=== PATIENT | male | born 1980 | race Hispanic/Latino ===

== ENCOUNTER 2018-04-20 23:45 | Observation (INO) | payer BC ==
[2018-04-21] MEDS ORDERED: Nitroglycerin 2% Ointment 1 INCH/1 GM Packet ONE (00:05)
[2018-04-21 00:40] LABS: #Basophils 0.1 thou/uL (0.0-0.2); #Eosinphils 0.1 thou/uL (0.0-0.7); #Lymphocytes 2.1 thou/uL (1.20-3.40); #Monocytes 0.5 thou/uL (0.11-0.59); #Neutrophils 6.4 thou/uL (1.40-6.50); %Basophils 1.5 % (0.0-1.0); %Eosinophils 1.4 % (0.0-10.0); %Lymphocytes 22.4 % (21.0-51.0); %Monocytes 5.7 % (0.0-10.0); %Neutrophils 68.9 % (42.0-75.0); Hemoglobin 16.8 g/dL (14.0-18.0); Mean Corpuscular Hemoglobin 29.8 pg (27.0-31.0); Mean Corpuscular Volume 82.7 fL (78.0-98.0); Mean Platelet Volume 8.7 fL (7.4-10.4); Platelet Count 312 thou/uL (130-400); RBC Distribution Width 10.5 % (11.5-14.5); Red Blood Cell (RBC) Count 5.63 mill/uL (4.70-6.10); White Blood Cell (WBC) Count 9.2 thou/uL (4.8-10.8)
[2018-04-21 00:41] LABS: CKMB 1.2 ng/mL (0-6.6)
[2018-04-21 00:45] LABS: ALT (SGPT) 31 U/L (8-55); AST (SGOT) 21 U/L (5-34); Alkaline Phosphatase 94 U/L (40-150); Anion Gap 17 mmol/L (10-20); BUN (Urea Nitrogen) 13 mg/dL (8.9-20.6); Bilirubin, Total 0.6 mg/dL (0.2-1.2); CK (CPK) 128 U/L (30-200); Calc. Creatinine Clearance 0 mL/min (70-130); Carbon Dioxide 25 mmol/L (22-29); Chloride 102 mmol/L (98-107); Estimated GFR-MDRD 82; Globulin 2.8 g/dL (2.4-3.5); Glucose 109 mg/dL (70-105); Lipase 57 U/L (8-78); Potassium 3.8 mmol/L (3.5-5.1); Protein, Total 7.8 g/dL (6.0-8.3); Sodium 140 mmol/L (136-145)
[2018-04-21 02:38] VITALS: BMI 28.1
[2018-04-21 04:07] LABS: Troponin I 0.035 ng/mL (< 0.028)
[2018-04-21 06:54] LABS: Troponin I 0.012 ng/mL (< 0.028)
--- NOTE | 2018-04-21 07:45 | CT ---
CTA CHEST WITH CONTRAST AND 3D VOLUME RENDERING CTA ABDOMEN AND PELVIS WITH CONTRAST AND 3D VOLUME RENDERING CTA AORTOGRAM WITH 3D VOLUME RENDERING: CLINICAL HISTORY: Pain. FINDINGS: The thoracoabdominal aorta is of normal caliber. There is no evidence of aortic dissection identifie d. No periaortic hematoma. The imaged bilateral iliac arteries are normal in caliber. Minimal volu me loss is seen at each posterior lung zone. There is moderate retained fecal material in the colon. Limited evaluation of the solid abdominal organs on the basis of arteriogram technique. No free ai r of the abdomen visualized. There are small locules of air density at the left sternoclavicular johnathan nt. IMPRESSION: No CTA evidence of aortic aneurysm or aortic dissection. POS: C
--- NOTE | 2018-04-21 08:57 | RAD ---
PORTABLE UPRIGHT FRONTAL CHEST RADIOGRAPH: 04/21/2018 HISTORY: Pain. COMPARISON: None. FINDINGS: The lungs are clear. The heart and mediastinal contours demonstrate no acute findings. The osseous structures appear intact. Mild increased linear density is noted in the region of the infralateral lingula, better assessed on an 04/21/2018 CT. IMPRESSION: No acute findings. POS: ANDI
[2018-04-21] MEDS ORDERED: Aspirin 325 mg Enteric Coated Tablet PO SCH (09:00)
[2018-04-21] MEDS: Nitroglycerin 2% Ointment 1 INCH/1 GM Packet TOP SCH ×2 (09:07→12:32)
[2018-04-21] MEDS ORDERED: Nitroglycerin 0.4 MG TAB (25 Tab Bottle) PO PRN (09:45)
[2018-04-21 12:07] VITALS: BP 135/84; TEMP 97.9
--- NOTE | 2018-04-21 12:46 | ULT ---
BILATERAL LOWER EXTREMITY VENOUS DOPPLER ULTRASOUND: TECHNIQUE: Tee scale, color flow, and spectral Doppler imaging of the deep venous systems of the lower extremit ies performed bilaterally. FINDINGS: There is good flow, compression, and augmentation noted in the common femoral, femoral, deep femoral, popliteal, posterior tibial, and greater saphenous veins on either side. IMPRESSION: No evidence of deep vein thrombosis in either lower extremity. POS: OFF
--- NOTE | 2018-04-21 18:31 | NM ---
NUCLEAR MEDICINE CARDIAC MYOCARDIAL PERFUSION SPECT EJECTION FRACTION STUDY WALL MOTION CINE: 04/21/18 HISTORY: 37-year-old male with hypertension and dyslipidemia presents with chest pain. TECHNIQUE: Number of days: One. Rest study: Tc99m sestamibi (Cardiolite) dose: 10.5 mCi Exercise stress: treadmill. Stress study: Tc99m sestamibi (Cardiolite) dose: 28.5 mCi FINDINGS: CARDIAC (MYOCARDIAL PERFUSION) SPECT Distribution of sestamibi is homogeneous throughout the left ventricle, with no fixed or reversible m yocardial perfusion defects. EJECTION FRACTION STUDY EF = 68% WALL MOTION CINE The left ventricular wall motion is normal. There is normal systolic wall thickening. IMPRESSION: Normal. quentin[] POS: ANDI
--- NOTE | 2018-04-21 23:49 | SS ---
HISTORY AND PHYSICAL AND DISCHARGE SUMMARY CHIEF COMPLAINT: Chest pain. HISTORY OF PRESENT ILLNESS: The patient is a very pleasant 37-year-old male who presents to the hosp ital with complaints of intermittent chest tightness going on for the past few weeks. The patient st ated that yesterday he went for a run. After the run, the patient ate dinner and then when he was wa lking with his , started noticing some sharp pain in his right calf area. Patient stated that pr ior to that he has been having some intermittent chest tightness with radiating to only a portion of his right arm, not the full arm. Patient also stated that when he was running yesterday, he did have some numbness in his right arm, but the right arm numbness what was only partial from mid right arm to elbow area, not the whole arm. He denies any fevers or chills. He denies any shortness of breath . The patient stated that he has been under a lot of stress. 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 Patient also states t hat he found out that his and him are with the first baby. Patient states that at time s the chest tightness is like a squeeze symptoms, it radiates to one or the other arm, but not to the jaw. Patient states that it lasts about 5-10 minutes and then subsides. He has not been taking any thing for it. PAST MEDICAL HISTORY: He says he has been diagnosed with hypertension and hyperlipidemia; however, h e has been controlling it with medications and exercise. MEDICATIONS: He takes none. ALLERGIES: He has got no known drug allergies. FAMILY HISTORY: Mother has hypertension and high cholesterol. Father of cirrhosis. SURGICAL HISTORY: None. SOCIAL HISTORY: He smokes occasional cigars. No alcohol or drug use. REVIEW OF SYSTEMS: All negative except for the ones mentioned above in the HPI. PHYSICAL EXAMINATION: VITAL SIGNS: As of the following temperature of 98.6, 89, 16, 97% room air, 152/86. GENERAL: He is awake, alert, oriented x3, does not appear in distress. HEENT: Normocephalic, atraumatic. NECK: No lymphadenopathy noted. ABDOMEN: Soft, nontender. Bowel sounds are present x2. CVS: S1, S2 present. No murmurs, rubs or gallops. LUNGS: Clear to auscultation, rhonchi or wheezes noted. EXTREMITIES: No edema. Pedal pulses present x2. His right calf area does appear to be a little bit larger than the left. However, no redness or erythema noted. NEUROLOGICAL: No focal deficits noted. SKIN: No lesions noted. LABORATORY RESULTS: As of the following, the patient's WBC of 9.2, hemoglobin of 16.8, hematocrit 46 .6, platelets of 312. Chemistry: Sodium 140, potassium of 3.8, BUN of 13, creatinine 1.03. LFTs ar e normal. He did have some mild troponin, increase of 0.030 and 0.035 and normal to 0.012. Chest x-ray, he had a CT dissection, which was normal and chest x-ray was normal. ASSESSMENT AND PLAN: The patient is a very pleasant 37-year-old male who presents to the hospital wi th complaints of chest pressure. 1. Atypical chest pain. Differential including cardiac versus anxiety versus musculoskeletal. The patient's pain is not reproducible. Patient did have some mild elevated troponins; however, he did r un yesterday. The patient states that he feels very anxious given his new findings of having a child . Also, his job is very stressful. We will go ahead and do an exercise stress test on this patient. If negative, the patient will be discharged home. Patient's blood pressure initially was elevated; however, currently it is in the 130s/40s. 2. Mildly elevated troponins that could just be from stress induce. We will do a stress test and co ntinue to monitor. 3. Deep venous thrombosis prophylaxis. The patient is on subcu heparin. DISCHARGE SUMMARY: The patient was seen and examined again initially came in with chest pain and hynu e complaints of right calf pain. A stress test was done, which was negative. The patient also had l ower extremity Dopplers, which were negative for DVT. He also had a CTA of the chest for CT dissecti on, which was negative. Patient's blood pressure actually on discharge is 135/85. We will continue no medications. The patient was educated on diet, exercise, weight loss. Continue current managemen t, decrease stress level and he will follow up with his PCP as outpatient. The patient does not take any home medications, so, none to prescribe or none to continue.
[2018-04-22] MEDS ORDERED: Aspirin 325 MG TAB PO SCH (09:00)
--- NOTE | 2018-04-27 10:49 | STRESS ---
Acquisition Time: 2018-04-21 15:17:36 Total Exercise Time: 00:10:01 Test Indications: CHEST PAIN Medications: Protocol: DAVID Max HR: 160 BPM 86% of Pred: 185 BPM Max BP: 184/076 mmHG Max Work Load: 13.4 METS RESTING ECG: NORMAL SINUS RHYTHM AT 63 BPM SYMPTOMS: DYSPNEA ON EXERTION NORMAL BP RESPONSE ECTOPY: NONE ECG STRESS: NO SIGNIFICANT CHANGES INTERPRETATION:NEGATIVE ECG/AWAIT NUCLEAR IMAGES FOR DEFINITIVE DIAGNOSIS COMMENTS: EXERCISED FOR 10 MINUTES; PEAK HEART RATE AT 160 BPM. Confirmed by ELOISA GASTON ([id number]), acquisition editor LUCERO KIRK ([id number]) on 04/27/2018 10:48:26 AM Referred By: MD Heather DE LA FUENTE Confirmed By:ELOISA GASTON
== END 2018-04-21 18:07 | disposition home or self-care (01) ==
LOC: SCSER 23:45 → 2SW 04-21 01:50
PROVIDERS: ADMIT Hospitalist; ATTEND Hospitalist
DX: R07.89 Other chest pain (principal); M79.1 Myalgia; R79.89 Other specified abnormal findings of blood chemistry; R20.2 Paresthesia of skin; I10 Essential (primary) hypertension; E78.5 Hyperlipidemia, unspecified; F17.290 Nicotine dependence, other tobacco product, uncomplicated
CPT/HCPCS: 36415; 71045; 71275; 78452; 80053; 82550; 82553; 83690; 84484; 85025; 85379; 93005; 93017; 93970; A9500; G0378